=== PATIENT | female | born 1995 | race Caucasian/White ===

== ENCOUNTER 2019-03-12 19:46 | Emergency (ER) | payer OTHER, MEDICAID ==
[2019-03-12] MEDS ORDERED: Ondansetron PF 4 MG/2 ML Vial ONE (20:02)
--- NOTE | 2019-03-12 21:17 | ULT ---
ULTRASOUND PELVIS: DOPPLER DUPLEX: DATE: 03/12/2019 HISTORY: 23-year-old female with vaginal bleeding. TECHNIQUE: Transabdominal transducer used to evaluate intrapelvic contents with grayscale, color-flow, and spect ral analysis. Endovaginal transducer was not used. FINDINGS: Uterus measures 11 x 6.5 x 9 cm. Intrauterine gestational sac containing pole. [place] rump length 3.5 cm: Corresponds to 10 weeks 3 days. heart rate 168 BPM. Small 1 x 1 cm cystic appearing lesion at the right side of the uterine fundus adjacent to the gestat ional sac, questionable for subchorionic hemorrhage. Blood flow demonstrated in both ovaries by Doppler. No evidence of corpus luteal cyst. No significant free fluid in the cul-de-sac. IMPRESSION: 1.) Live first trimester intrauterine gestation estimated to be 10 weeks 3 days gestational age. 2) questionable small subchorionic hemorrhage.
== END 2019-03-12 21:54 | disposition home or self-care (01) ==
LOC: ERS 19:46
DX: O20.9 Hemorrhage in early pregnancy, unspecified (principal); O99.511 Diseases of the respiratory system complicating pregnancy, first trimester; J45.909 Unspecified asthma, uncomplicated; O99.89 Other specified diseases and conditions complicating pregnancy, childbirth and the puerperium; R11.0 Nausea; Z3A.10 10 weeks gestation of pregnancy
CPT/HCPCS: 76856; 96374; J2405